=== PATIENT | female | born 1995 | race Caucasian/White ===

== ENCOUNTER 2023-02-13 12:20 | Inpatient (IN) | payer OTHER ==
[2023-02-13 13:19] VITALS: BMI 38.7
[2023-02-13] MEDS ORDERED: OXYTOCIN 20 UNITS in 0.9% NS 40 UNIT/2,000 ML INFUS.BAG IV ONE (13:50)
[2023-02-13] MEDS ORDERED: morphine SULFATE (PF) 1 MG/2 ML SYRINGE ONE (13:52)
[2023-02-13] MEDS ORDERED: ceFAZolin SODIUM 1 GM VIAL ONE (13:52)
[2023-02-13] MEDS ORDERED: CITRIC ACID/SODIUM CITRATE 30 ML UNIT-DOSE CUP PO ONE (13:52)
[2023-02-13] MEDS ORDERED: ELECTROLYTE-148 SOLN 1,000 ML IV SCH (14:00)
[2023-02-13] MEDS ORDERED: ONDANSETRON 4 MG/2 ML VIAL ONE (14:01)
[2023-02-13] MEDS ORDERED: DEXAMETHASONE SOD PHOSPHATE 4 MG/1 ML VIAL ONE (14:01)
[2023-02-13] MEDS ORDERED: OXYTOCIN 10 UNITS/ML VIAL ONE (14:22)
[2023-02-13] MEDS ORDERED: METHYLERGONOVINE MALEATE 0.2 MG/1 ML AMP IM PRN (14:47)
[2023-02-13] MEDS ORDERED: IBUPROFEN 800 MG/8 ML IJ IVPB PRN (14:47)
[2023-02-13] MEDS ORDERED: ONDANSETRON 4 MG/2 ML VIAL IVPUSH PRN (15:01)
[2023-02-13] MEDS ORDERED: ACETAMINOPHEN 1000 MG/100 ML BAG IVPB PRN (15:02)
[2023-02-13] MEDS: OXYTOCIN 20 UNITS in 0.9% NS 20 UNIT/1,000 ML INFUS.BAG IV SCH (16:00)
[2023-02-13] MEDS: FERROUS SO4 325 MG TABLET (FP) PO SCH (21:32)
[2023-02-14] MEDS: OXYTOCIN 20 UNITS in 0.9% NS 20 UNIT/1,000 ML INFUS.BAG IV SCH (00:05)
[2023-02-14] MEDS: SIMETHICONE 80 MG TAB.CHEW (FP) PO PRN ×4 (03:23→23:48)
[2023-02-14] MEDS: IBUPROFEN 600 MG TABLET (FP) PO PRN ×4 (03:23→23:48)
[2023-02-14 07:12] LABS: BASO % 0.2 % (0-2.0); EOS % 0.2 % (0-4.5); HEMATOCRIT 30.1 % (32.4-45.2); HEMOGLOBIN 10.3 GM/dL (10.7-15.3); LYMPH % 17.5 % (8-40); MCH 29.6 pg (25.7-33.7); MCHC 34.3 g/dl (32.0-36.0); MEAN CELL VOLUME 86.4 fl (80-96); MEAN PLT VOLUME 12.1 fl (7.5-11.1); MONO % 7.8 % (3.8-10.2); NEUT % 74.3 % (42.8-82.8); PLATELET COUNT 113 10^3/uL (134-434); RBC 3.48 M/mm3 (3.60-5.2); RDW 13.2 % (11.6-15.6); WHITE BLOOD COUNT 11.7 K/mm3 (4.0-10.0)
[2023-02-14] MEDS: FERROUS SO4 325 MG TABLET (FP) PO SCH ×3 (11:02→23:15)
[2023-02-14] MEDS: PRENATAL VITAMINS W/ FOLIC ACID TABLET (FP) PO SCH ×2 (11:02→13:44)
[2023-02-14] MEDS ORDERED: BISACODYL 10 MG SUPP.RECT RC PRN (14:47)
[2023-02-15] MEDS: oxyCODONE HCL 5 MG TABLET PO PRN ×3 (02:38→20:50)
[2023-02-15] MEDS: SIMETHICONE 80 MG TAB.CHEW (FP) PO PRN ×4 (04:06→20:51)
[2023-02-15] MEDS: ACETAMINOPHEN 325 MG TABLET (FP) PO PRN ×4 (04:06→23:06)
[2023-02-15] MEDS: IBUPROFEN 600 MG TABLET (FP) PO PRN ×3 (06:05→16:34)
[2023-02-15] MEDS: FERROUS SO4 325 MG TABLET (FP) PO SCH ×2 (09:01→21:10)
[2023-02-15] MEDS: PRENATAL VITAMINS W/ FOLIC ACID TABLET (FP) PO SCH (09:01)
[2023-02-15 23:57] VITALS: RESP 18
[2023-02-16] MEDS: oxyCODONE HCL 5 MG TABLET PO PRN (02:37)
[2023-02-16] MEDS: SIMETHICONE 80 MG TAB.CHEW (FP) PO PRN ×2 (02:38→10:00)
[2023-02-16] MEDS: IBUPROFEN 600 MG TABLET (FP) PO PRN ×3 (06:08→15:20)
[2023-02-16 08:17] LABS: BASO % 0.4 % (0-2.0); EOS % 1.4 % (0-4.5); HEMATOCRIT 30.7 % (32.4-45.2); HEMOGLOBIN 10.7 GM/dL (10.7-15.3); LYMPH % 26.3 % (8-40); MCH 30.5 pg (25.7-33.7); MCHC 34.7 g/dl (32.0-36.0); MEAN CELL VOLUME 87.9 fl (80-96); MEAN PLT VOLUME 12.3 fl (7.5-11.1); MONO % 7.3 % (3.8-10.2); NEUT % 64.6 % (42.8-82.8); PLATELET COUNT 123 10^3/uL (134-434); RBC 3.49 M/mm3 (3.60-5.2); RDW 13.4 % (11.6-15.6); WHITE BLOOD COUNT 7.9 K/mm3 (4.0-10.0)
[2023-02-16 09:12] VITALS: BP 116/55; PULSE 62; TEMP 97.8
[2023-02-16] MEDS: FERROUS SO4 325 MG TABLET (FP) PO SCH (09:30)
[2023-02-16] MEDS: PRENATAL VITAMINS W/ FOLIC ACID TABLET (FP) PO SCH (09:30)
== END 2023-02-16 17:30 | disposition home or self-care (01) | DRG 540 ==
LOC: JLDR 12:20 → J3W 16:20
PROVIDERS: ADMIT Obstetrics & Gynecology; ATTEND Obstetrics & Gynecology
PROC: 10D00Z1 Extraction of Products of Conception, Low, Open Approach (ICD-10-PCS; principal; 2023-02-13)
DX: O36.63X0 Maternal care for excessive fetal growth, third trimester, not applicable or unspecified (principal); O99.213 Obesity complicating pregnancy, third trimester; Z3A.40 40 weeks gestation of pregnancy; Z37.0 Single live birth
CPT/HCPCS: 36415; 80053; 85025; 85610; 86780; 86850; 86900; 86901; 88307-TC; 94010; C9803-CS; U0003; U0005

== ENCOUNTER 2024-09-11 08:00 | Inpatient (IN) | payer OTHER ==
[2024-09-11] MEDS ORDERED: ELECTROLYTE-148 SOLN 500 ML IV ONE (10:15)
[2024-09-11] MEDS: CITRIC ACID/SODIUM CITRATE 30 ML UNIT-DOSE CUP PO ONE (10:45)
[2024-09-11] MEDS: LACTATED RINGERS SOLUTION 1,000 ML/1,000 ML INFUS.BAG IV SCH (11:00)
[2024-09-11 11:19] VITALS: BMI 37.9
[2024-09-11] MEDS ORDERED: morphine SULFATE/PF 1 MG/2 ML (2cc Syringe - QUVA) ONE (12:29)
[2024-09-11] MEDS ORDERED: FENTANYL CITRATE/PF 50 MCG/ML VIAL ONE (12:29)
[2024-09-11] MEDS ORDERED: ONDANSETRON 4 MG/2 ML VIAL ONE ×2 (12:44→12:52)
[2024-09-11] MEDS ORDERED: OXYTOCIN 10 UNITS/ML VIAL ONE (12:52)
[2024-09-11] MEDS ORDERED: PHENYLEPHRINE HCL 10 MG/1 ML SINGLE DOSE VIAL ONE (12:52)
[2024-09-11] MEDS ORDERED: KETOROLAC TROMETHAMINE 30 MG/1 ML VIAL ONE (12:52)
[2024-09-11] MEDS ORDERED: ceFAZolin SODIUM 1 GM VIAL ONE (12:52)
[2024-09-11] MEDS ORDERED: OXYTOCIN 20 UNITS in 0.9% NS 20 UNIT/1,000 ML INFUS.BAG IV ONE (13:38)
[2024-09-11] MEDS ORDERED: ONDANSETRON 4 MG/2 ML VIAL IVPUSH PRN (13:39)
[2024-09-11] MEDS: OXYTOCIN 20 UNITS in 0.9% NS 20 UNIT/1,000 ML INFUS.BAG IV SCH (13:45)
[2024-09-11] MEDS: SODIUM CHLORIDE 1,000 ML IV ONE (16:15)
[2024-09-11] MEDS: morphine SULFATE/PF 1 MG/2 ML (2cc Syringe - QUVA) IT ONE (16:31)
[2024-09-11] MEDS ORDERED: ACETAMINOPHEN INJECTION 100 ML ONE (16:32)
[2024-09-11] MEDS: ACETAMINOPHEN 1000 MG/100 ML BAG IVPB ONE (16:35)
[2024-09-11] MEDS: IBUPROFEN 600 MG TABLET (FP) PO PRN (21:56)
[2024-09-12] MEDS: SIMETHICONE 80 MG TAB.CHEW (FP) PO PRN (01:30)
[2024-09-12] MEDS: oxyCODONE HCL 5 MG TABLET PO PRN (01:30)
[2024-09-12] MEDS: IBUPROFEN 800 MG/8 ML IJ IVPB PRN (06:07)
[2024-09-12 08:29] LABS: BASO % 0.3 % (0-2.0); EOS % 1.2 % (0-4.5); HEMATOCRIT 26.5 % (32.4-45.2); HEMOGLOBIN 8.5 GM/dL (10.7-15.3); LYMPH % 15.3 % (8-40); MCH 26.1 pg (25.7-33.7); MCHC 32.2 g/dl (32.0-36.0); MEAN CELL VOLUME 80.9 fl (80-96); MEAN PLT VOLUME 11.9 fl (7.5-11.1); MONO % 6.5 % (3.8-10.2); NEUT % 76.7 % (42.8-82.8); PLATELET COUNT 117 10^3/uL (134-434); RBC 3.28 M/mm3 (3.60-5.2); RDW 14.5 % (11.6-15.6); WHITE BLOOD COUNT 9.9 K/mm3 (4.0-10.0)
[2024-09-12] MEDS: ACETAMINOPHEN 325 MG TABLET (FP) PO PRN (10:58)
[2024-09-12] MEDS ORDERED: BISACODYL 10 MG SUPP.RECT RC PRN (11:30)
[2024-09-12] MEDS: FERROUS SO4 325 MG TABLET (FP) PO SCH (13:22)
[2024-09-14 08:18] LABS: BASO % 0.4 % (0-2.0); EOS % 1.6 % (0-4.5); HEMATOCRIT 26.1 % (32.4-45.2); HEMOGLOBIN 8.4 GM/dL (10.7-15.3); LYMPH % 25.7 % (8-40); MCH 26.1 pg (25.7-33.7); MCHC 32.4 g/dl (32.0-36.0); MEAN CELL VOLUME 80.4 fl (80-96); MEAN PLT VOLUME 10.7 fl (7.5-11.1); MONO % 7.1 % (3.8-10.2); NEUT % 65.2 % (42.8-82.8); PLATELET COUNT 148 10^3/uL (134-434); RBC 3.24 M/mm3 (3.60-5.2); RDW 14.6 % (11.6-15.6); WHITE BLOOD COUNT 7.1 K/mm3 (4.0-10.0)
[2024-09-14] MEDS: FAMOTIDINE 20 MG TABLET PO SCH (20:51)
[2024-09-15] MEDS: FAMOTIDINE 20 MG TABLET PO SCH (10:00)
[2024-09-15 10:17] VITALS: BP 137/82; PULSE 67; RESP 17; TEMP 97.5
== END 2024-09-15 13:50 | disposition home or self-care (01) | DRG 540 ==
LOC: JLDR 09:35 → J3W 17:30
PROVIDERS: ADMIT Student in an Organized Health Care Education/Training Program; ATTEND Student in an Organized Health Care Education/Training Program
PROC: 10D00Z1 Extraction of Products of Conception, Low, Open Approach (ICD-10-PCS; principal; 2024-09-11)
DX: O34.211 Maternal care for low transverse scar from previous cesarean delivery (principal); Z3A.39 39 weeks gestation of pregnancy; Z37.0 Single live birth
CPT/HCPCS: 36415; 59409; 80053; 81003; 85025; 85610; 86780; 86850; 86900; 86901; 88307-TC; 94010; J0131